=== PATIENT | female | born 2000 ===

== ENCOUNTER → 2023-03-29 | Outpatient (REF) | payer OTHER | LOC: M LAB REF 13:59 | PROVIDERS: ATTEND Physician Assistant Medical | DX: J02.9 Acute pharyngitis, unspecified (principal) ==

== ENCOUNTER → 2024-08-30 | Outpatient (REF) | payer OTHER | LOC: M LAB REF 12:24 | PROVIDERS: ATTEND Physician Assistant Medical | DX: R50.9 Fever, unspecified (principal) ==